=== PATIENT | male | born 1945 | race Caucasian/White ===

== ENCOUNTER 2018-01-11 20:36 | Inpatient (IN) | payer MEDICARE, BC ==
--- NOTE | 2018-01-11 21:20 | EDM.PDOC ---
ED HPI GENERAL MEDICAL PROBLEM - General Chief Complaint: General Stated Complaint: FALL AND NAUSEA Time Seen by Provider: 01/11/18 20:50 Source of Information: Reports: Patient, Family History Limitations: Reports: No Limitations - History of Present Illness INITIAL COMMENTS - FREE TEXT/NARRATIVE: This is a 72yo M here for dizziness nausea and feeling very very nauseated. He was outside for 2.5hrs in the AM and then 3.5 hours later in the day working up a good sweat. He started feeling weak and his helped him lie down in the basement. EMS was called when he couldn't get up and continued vomiting. He denies excess exposure to herbicides he was spraying earlier in the day but states he was sweating a lot throughout the day. He continues to be severely nauseated when lying on his back. Onset: Sudden Duration: Minutes: Location: Reports: Generalized Severity: Severe Improves with: Reports: None Worsens with: Reports: None Associated Symptoms: Reports: Nausea/Vomiting, Weakness - Related Data Allergies Allergy/AdvReac Type Severity Reaction Status Date / Time seasonal alergies Allergy Difficulty Uncoded 06/05/16 17:37 Breathing Home Meds: Home Meds atorvaSTATin [Lipitor] 10 mg PO BEDTIME 06/05/16 [History] Past Medical History HEENT History: Reports: Hard of Hearing, Impaired Vision Gastrointestinal History: Reports: Colon Polyp Endocrine/Metabolic History: Reports: Diabetes, Type II Dermatologic History: Reports: Eczema - Infectious Disease History Infectious Disease History: Reports: Chicken Pox, Influenza, Mumps, Pertussis ( Whooping Cough), TB Other Infectious Disease History: 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 ED EXAM, GENERAL - Physical Exam Exam: See Below Exam Limited By: No Limitations General Appearance: Alert, WD/WN, Severe Distress Eye Exam: Bilateral Eye: EOMI, PERRL Ears: Normal External Exam Nose: Normal Inspection, Normal Mucosa, No Blood Throat/Mouth: Normal Inspection, Normal Lips, Normal Teeth, Normal Gums, Normal Oropharynx, Normal Voice, No Airway Compromise Head: Atraumatic, Normocephalic Neck: Normal Inspection, Supple, Non-Tender, Full Range of Motion Respiratory/Chest: No Respiratory Distress, Lungs Clear, Normal Breath Sounds, No Accessory Muscle Use, Chest Non-Tender Cardiovascular: Normal Peripheral Pulses, Regular Rate, Rhythm, No Edema, No JVD , No Murmur Peripheral Pulses: 2+: Dorsalis Pedis (L), Dorsalis Pedis (R) GI/Abdominal: Normal Bowel Sounds, Soft, Non-Tender, No Organomegaly Back Exam: Normal Inspection Extremities: Normal Inspection, Normal Range of Motion Neurological: Alert, Oriented Psychiatric: Normal Affect, Normal Mood Skin Exam: Dry, Intact, Diaphoretic EKG INTERPRETATION EKG Date: 01/11/18 EKG Interpretation Comments: Patient unable to lie on back due to severe wretching and vomiting when turned to his back. Course - Orders/Labs/Meds Orders: Active Orders 24 hr Category Date Time Status Patient Status [ADT] Routine ADT 01/11/18 22:13 Ordered Ambulate [RC] PER UNIT ROUTINE Care 01/11/18 22:13 Ordered EKG Documentation Completion [RC] ASDIRECTED Care 01/11/18 21:07 Active Oxygen Therapy [RC] PRN Care 01/11/18 22:13 Ordered Up With Assistance [RC] ASDIRECTED Care 01/11/18 22:13 Ordered Vital Signs [RC] Q4H Care 01/11/18 22:13 Ordered Regular Diet [DIET] Diet 01/11/18 Breakfast Ordered Ondansetron [Zofran] Med 01/11/18 22:30 Ordered 4 mg IVPUSH Q4H Promethazine [Phenergan] 12.5 mg Med 01/11/18 21:40 Active Sodium Chloride 0.9% [Normal Saline] 50 ml IV Q4H Sodium Chloride 0.9% [Normal Saline] 1,000 ml Med 01/11/18 21:15 Active IV ASDIRECTED atorvaSTATin [Lipitor] Med 01/12/18 20:00 Ordered 10 mg PO BEDTIME Resuscitation Status Routine Resus Stat 01/11/18 22:13 Ordered Medication Orders Sodium Chloride (Normal Saline) 1,000 mls @ 999 mls/hr IV ASDIRECTED ANASTASIYA Stop: 01/13/18 22:16 Promethazine HCl 12.5 mg/ (Sodium Chloride) 50.5 mls @ 200 mls/hr IV Q4H PRN PRN Reason: Nausea/Vomiting Ondansetron HCl (Zofran) 4 mg IVPUSH Q4H ANASTASIYA Labs: Laboratory Tests 01/11/18 01/11/18 01/11/18 Range/Units 21:13 21:13 21:13 WBC 10.9 D (4.0-11.0) K/uL RBC 4.85 (4.50-6.50) M/uL Hgb 14.8 (13.0-18.0) g/dL Hct 42.2 (40.0-54.0) % MCV 87 (76-96) fL MCH 30.5 (27.0-32.0) pg MCHC 35.1 H (31.0-35.0) g/dL RDW 12.4 (11.0-16.0) % Plt Count 145 L (150-400) K/uL MPV 9.7 (6.0-10.0) fL Neut % (Auto) 76.6 H (45.0-70.0) % Lymph % (Auto) 15.1 L (20.0-40.0) % [place] % (Auto) 7.1 (3.0-10.0) % Eos % (Auto) 1.0 (1.0-5.0) % Baso % (Auto) 0.2 (0.0-0.5) % Neut # (Auto) 8.38 H (2.00-7.50) K/uL Lymph # (Auto) 1.65 (1.50-4.00) K/uL [place] # (Auto) 0.78 (0.20-0.80) K/uL Eos # (Auto) 0.11 (0.04-0.40) K/uL Baso # (Auto) 0.02 (0.02-0.10) K/uL Sodium 140 (136-145) mmol/L Potassium 3.7 (3.5-5.1) mmol/L Chloride 103 (98-107) mmol/L Carbon Dioxide 24.1 (21.0-32.0) mmol/L Anion Gap 16.6 H (5.0-15.0) mmol/L BUN 21 (8-26) mg/dL Creatinine 1.11 (0.70-1.30) mg/dL Est Cr Clr Drug Dosing TNP Estimated GFR (MDRD) > 60 (>60) MLS/MIN BUN/Creatinine Ratio 18.9 (6-25) Glucose 210 H D (74-100) mg/dL Calcium 8.4 L (8.5-10.1) mg/dL Total Bilirubin 0.8 (0.0-1.0) mg/dL AST 27 (15-37) U/L ALT 34 (12-78) U/L Alkaline Phosphatase 112 (46-116) U/L Troponin I < 0.017 (0.000-0.060) ng/mL Total Protein 7.0 (6.4-8.2) g/dL Albumin 3.8 (3.4-5.0) g/dL Globulin 3.2 (2.2-4.2) g/dL Albumin/Globulin Ratio 1.2 (0.8-2.0) TSH, Ultra Sensitive 1.021 (0.358-3.740) uIU/mL Urine Color Urine Appearance (CLEAR) Urine pH (5.0-8.0) Ur Specific [place] (1.003-1.030) Urine Protein (NEGATIVE) mg/dL Urine Glucose (UA) (NEGATIVE) mg/dL Urine Ketones (NEGATIVE) mg/dL Urine Occult Blood (NEGATIVE) Urine Nitrite (NEGATIVE) Urine Bilirubin (NEGATIVE) Urine Urobilinogen (0.2-1.0) E.U./dL Ur Leukocyte Esterase (NEGATIVE) Urine RBC /HPF Urine WBC /HPF Ketones Negative (NEGATIVE) 01/11/18 Range/Units 21:43 WBC (4.0-11.0) K/uL RBC (4.50-6.50) M/uL Hgb (13.0-18.0) g/dL Hct (40.0-54.0) % MCV (76-96) fL MCH (27.0-32.0) pg MCHC (31.0-35.0) g/dL RDW (11.0-16.0) % Plt Count (150-400) K/uL MPV (6.0-10.0) fL Neut % (Auto) (45.0-70.0) % Lymph % (Auto) (20.0-40.0) % [place] % (Auto) (3.0-10.0) % Eos % (Auto) (1.0-5.0) % Baso % (Auto) (0.0-0.5) % Neut # (Auto) (2.00-7.50) K/uL Lymph # (Auto) (1.50-4.00) K/uL [place] # (Auto) (0.20-0.80) K/uL Eos # (Auto) (0.04-0.40) K/uL Baso # (Auto) (0.02-0.10) K/uL Sodium (136-145) mmol/L Potassium (3.5-5.1) mmol/L Chloride (98-107) mmol/L Carbon Dioxide (21.0-32.0) mmol/L Anion Gap (5.0-15.0) mmol/L BUN (8-26) mg/dL Creatinine (0.70-1.30) mg/dL Est Cr Clr Drug Dosing Estimated GFR (MDRD) (>60) MLS/MIN BUN/Creatinine Ratio (6-25) Glucose (74-100) mg/dL Calcium (8.5-10.1) mg/dL Total Bilirubin (0.0-1.0) mg/dL AST (15-37) U/L ALT (12-78) U/L Alkaline Phosphatase (46-116) U/L Troponin I (0.000-0.060) ng/mL Total Protein (6.4-8.2) g/dL Albumin (3.4-5.0) g/dL Globulin (2.2-4.2) g/dL Albumin/Globulin Ratio (0.8-2.0) TSH, Ultra Sensitive (0.358-3.740) uIU/mL Urine Color Yellow Urine Appearance Clear (CLEAR) Urine pH 7.0 (5.0-8.0) Ur Specific [place] 1.020 (1.003-1.030) Urine Protein Negative (NEGATIVE) mg/dL Urine Glucose (UA) 100 H (NEGATIVE) mg/dL Urine Ketones 15 H (NEGATIVE) mg/dL Urine Occult Blood Negative (NEGATIVE) Urine Nitrite Negative (NEGATIVE) Urine Bilirubin Negative (NEGATIVE) Urine Urobilinogen 0.2 (0.2-1.0) E.U./dL Ur Leukocyte Esterase Negative (NEGATIVE) Urine RBC Not seen /HPF Urine WBC Not seen /HPF Ketones (NEGATIVE) Meds: Medications Generic Name Dose Route Start Last Admin Trade Name Freq PRN Reason Stop Dose Admin Sodium Chloride 1,000 mls @ 999 mls/hr 01/11/18 21:15 Normal Saline IV 01/13/18 22:16 ASDIRECTED ANASTASIYA Promethazine HCl 12.5 mg/ 50.5 mls @ 200 mls/hr 01/11/18 21:40 Sodium Chloride IV Q4H PRN Nausea/Vomiting Ondansetron HCl 4 mg 01/11/18 22:30 Zofran IVPUSH Q4H ANASTASIYA Discontinued Medications Generic Name Dose Route Start Last Admin Trade Name Freq PRN Reason Stop Dose Admin Promethazine HCl 6.25 mg/ 50.25 mls @ 200 mls/hr 01/11/18 21:26 Sodium Chloride IV Q4H PRN Nausea/Vomiting Ondansetron HCl 4 mg 01/11/18 21:26 Zofran IVPUSH 01/11/18 21:27 ONETIME ONE Departure - Departure Time of Disposition: 22:18 Disposition: Admitted As Inpatient 66 Condition: Good Clinical Impression: Dehydration after exertion, Exertional heat stroke Intractable nausea and vomiting Qualifiers: Vomiting type: unspecified Qualified Code(s): R11.2 - Nausea with vomiting, unspecified - Discharge Information Forms: ED Department Discharge - Problem List & Annotations (1) Dehydration after exertion SNOMED Code(s): 184472612 Code(s): E86.0 - DEHYDRATION Status: Acute Priority: High (2) Exertional heat stroke SNOMED Code(s): 335735489 Code(s): T67.0XXA - HEATSTROKE AND SUNSTROKE, INITIAL ENCOUNTER Status: Acute Priority: High (3) Intractable nausea and vomiting SNOMED Code(s): 278200432 Code(s): R11.2 - NAUSEA WITH VOMITING, UNSPECIFIED Status: Acute Priority : High Qualifiers: Vomiting type: unspecified Qualified Code(s): R11.2 - Nausea with vomiting , unspecified - Problem List Review Problem List Initiated/Reviewed/Updated: Yes - My Orders Last 24 Hours: My Active Orders 01/11/18 21:07 EKG Documentation Completion [RC] ASDIRECTED 01/11/18 21:15 Sodium Chloride 0.9% [Normal Saline] 1,000 ml IV ASDIRECTED 01/11/18 21:40 Promethazine [Phenergan] 12.5 mg Sodium Chloride 0.9% [Normal Saline] 50 ml IV Q4H 01/11/18 22:13 Patient Status [ADT] Routine Ambulate [RC] PER UNIT ROUTINE Oxygen Therapy [RC] PRN Up With Assistance [RC] ASDIRECTED Vital Signs [RC] Q4H Resuscitation Status Routine 01/11/18 22:30 Ondansetron [Zofran] 4 mg IVPUSH Q4H 01/11/18 Breakfast Regular Diet [DIET] 01/12/18 20:00 atorvaSTATin [Lipitor] 10 mg PO BEDTIME - Assessment/Plan Last 24 Hours: My Active Orders 01/11/18 21:07 EKG Documentation Completion [RC] ASDIRECTED 01/11/18 21:15 Sodium Chloride 0.9% [Normal Saline] 1,000 ml IV ASDIRECTED 01/11/18 21:40 Promethazine [Phenergan] 12.5 mg Sodium Chloride 0.9% [Normal Saline] 50 ml IV Q4H 01/11/18 22:13 Patient Status [ADT] Routine Ambulate [RC] PER UNIT ROUTINE Oxygen Therapy [RC] PRN Up With Assistance [RC] ASDIRECTED Vital Signs [RC] Q4H Resuscitation Status Routine 01/11/18 22:30 Ondansetron [Zofran] 4 mg IVPUSH Q4H 01/11/18 Breakfast Regular Diet [DIET] 01/12/18 20:00 atorvaSTATin [Lipitor] 10 mg PO BEDTIME Plan: Poison control contacted and discussed 2-4-D herbicide and they state that the limited exposure would not have caused the symptoms exhibited. Patient admitted for heat stroke -exertional and dehydration. Continue IVF hydration for 3L and maintenance afterwards. Continue zofran and phenergan for intractable nausea and vomiting.
[2018-01-11] MEDS ORDERED: Ondansetron 4 MG/2 ML SDV IVPUSH ONE (21:26)
[2018-01-11] MEDS ORDERED: Promethazine 6.25 MG in Sodium Chloride 0.9% 50 ML IV PRN (21:26)
[2018-01-11] MEDS ORDERED: Promethazine 12.5 MG in Sodium Chloride 0.9% 50 ML IV PRN (21:40)
[2018-01-11] MEDS ORDERED: Ondansetron 4 MG/2 ML SDV ONE ×2 (22:30)
[2018-01-11] MEDS: Sodium Chloride 0.9% 1,000 ML IV SCH (23:20)
[2018-01-11] MEDS: Ondansetron 4 MG/2 ML SDV IVPUSH SCH (23:23)
[2018-01-12] MEDS: Sodium Chloride 0.9% 1,000 ML IV SCH ×2 (00:56→08:37)
[2018-01-12] MEDS: Ondansetron 4 MG/2 ML SDV IVPUSH SCH ×3 (02:15→05:33)
[2018-01-12] MEDS ORDERED: Sodium Chloride 0.9% 1,000 ML IV SCH (02:30)
[2018-01-12 09:25] VITALS: BP 125/52
--- NOTE | 2018-01-12 12:03 | PCM.DCSUM1 ---
Discharge Summary - Discharge Data Discharge Date: 01/12/18 Discharge Disposition: Home, Self-Care 01 Condition: Good - Discharge Diagnosis/Problem(s) (1) Dehydration after exertion SNOMED Code(s): 661472052 ICD Code: E86.0 - DEHYDRATION Status: Resolved Priority: High (2) Exertional heat stroke SNOMED Code(s): 493296028 ICD Code: T67.0XXA - HEATSTROKE AND SUNSTROKE, INITIAL ENCOUNTER Status: Resolved Priority: High (3) Intractable nausea and vomiting SNOMED Code(s): 629513933 ICD Code: R11.2 - NAUSEA WITH VOMITING, UNSPECIFIED Status: Resolved Priority: High Qualifiers: Vomiting type: unspecified Qualified Code(s): R11.2 - Nausea with vomiting , unspecified - Patient Instructions Activity: Rest and Relax Today Driving: May Drive Today Showering/Bathing: November Shower - Discharge Plan Home Medications: Home Meds atorvaSTATin [Lipitor] 10 mg PO BEDTIME 06/05/16 [History] Patient Handouts: Rehydration, Adult, Heat Illness-SportsMed Forms: ED Department Discharge - Discharge Summary/Plan Comment Discharge Summary/Plan Comment: Patient counseled on continued vigilant care for hydration and rest and sun protection. Discussed heat stroke vs heat exhaustion and f/u as directed in clinic. - Patient Data Vitals - Most Recent: Last Vital Signs Temp 36.9 C 01/12/18 08:00 Pulse 48 L 01/12/18 08:00 Resp 16 01/12/18 08:00 BP 125/52 L 01/12/18 08:00 Pulse Ox 99 01/12/18 08:00 I&O - Last 24 hours: Intake & Output 01/11/18 01/12/18 01/12/18 22:59 06:59 14:59 Intake Total 3560 Output Total 1250 Balance 2310 Lab Results - Last 24 hrs: Laboratory Results - last 24 hr 01/11/18 01/11/18 01/11/18 Range/Units 21:13 21:13 21:13 WBC 10.9 D (4.0-11.0) K/uL RBC 4.85 (4.50-6.50) M/uL Hgb 14.8 (13.0-18.0) g/dL Hct 42.2 (40.0-54.0) % MCV 87 (76-96) fL MCH 30.5 (27.0-32.0) pg MCHC 35.1 H (31.0-35.0) g/dL RDW 12.4 (11.0-16.0) % Plt Count 145 L (150-400) K/uL MPV 9.7 (6.0-10.0) fL Neut % (Auto) 76.6 H (45.0-70.0) % Lymph % (Auto) 15.1 L (20.0-40.0) % [place] % (Auto) 7.1 (3.0-10.0) % Eos % (Auto) 1.0 (1.0-5.0) % Baso % (Auto) 0.2 (0.0-0.5) % Neut # (Auto) 8.38 H (2.00-7.50) K/uL Lymph # (Auto) 1.65 (1.50-4.00) K/uL [place] # (Auto) 0.78 (0.20-0.80) K/uL Eos # (Auto) 0.11 (0.04-0.40) K/uL Baso # (Auto) 0.02 (0.02-0.10) K/uL Sodium 140 (136-145) mmol/L Potassium 3.7 (3.5-5.1) mmol/L Chloride 103 (98-107) mmol/L Carbon Dioxide 24.1 (21.0-32.0) mmol/L Anion Gap 16.6 H (5.0-15.0) mmol/L BUN 21 (8-26) mg/dL Creatinine 1.11 (0.70-1.30) mg/dL Est Cr Clr Drug Dosing TNP Estimated GFR (MDRD) > 60 (>60) MLS/MIN BUN/Creatinine Ratio 18.9 (6-25) Glucose 210 H D (74-100) mg/dL Calcium 8.4 L (8.5-10.1) mg/dL Total Bilirubin 0.8 (0.0-1.0) mg/dL AST 27 (15-37) U/L ALT 34 (12-78) U/L Alkaline Phosphatase 112 (46-116) U/L Troponin I < 0.017 (0.000-0.060) ng/mL Total Protein 7.0 (6.4-8.2) g/dL Albumin 3.8 (3.4-5.0) g/dL Globulin 3.2 (2.2-4.2) g/dL Albumin/Globulin Ratio 1.2 (0.8-2.0) TSH, Ultra Sensitive 1.021 (0.358-3.740) uIU/mL Urine Color Urine Appearance (CLEAR) Urine pH (5.0-8.0) Ur Specific [place] (1.003-1.030) Urine Protein (NEGATIVE) mg/dL Urine Glucose (UA) (NEGATIVE) mg/dL Urine Ketones (NEGATIVE) mg/dL Urine Occult Blood (NEGATIVE) Urine Nitrite (NEGATIVE) Urine Bilirubin (NEGATIVE) Urine Urobilinogen (0.2-1.0) E.U./dL Ur Leukocyte Esterase (NEGATIVE) Urine RBC /HPF Urine WBC /HPF Ketones Negative (NEGATIVE) 01/11/18 Range/Units 21:43 WBC (4.0-11.0) K/uL RBC (4.50-6.50) M/uL Hgb (13.0-18.0) g/dL Hct (40.0-54.0) % MCV (76-96) fL MCH (27.0-32.0) pg MCHC (31.0-35.0) g/dL RDW (11.0-16.0) % Plt Count (150-400) K/uL MPV (6.0-10.0) fL Neut % (Auto) (45.0-70.0) % Lymph % (Auto) (20.0-40.0) % [place] % (Auto) (3.0-10.0) % Eos % (Auto) (1.0-5.0) % Baso % (Auto) (0.0-0.5) % Neut # (Auto) (2.00-7.50) K/uL Lymph # (Auto) (1.50-4.00) K/uL [place] # (Auto) (0.20-0.80) K/uL Eos # (Auto) (0.04-0.40) K/uL Baso # (Auto) (0.02-0.10) K/uL Sodium (136-145) mmol/L Potassium (3.5-5.1) mmol/L Chloride (98-107) mmol/L Carbon Dioxide (21.0-32.0) mmol/L Anion Gap (5.0-15.0) mmol/L BUN (8-26) mg/dL Creatinine (0.70-1.30) mg/dL Est Cr Clr Drug Dosing Estimated GFR (MDRD) (>60) MLS/MIN BUN/Creatinine Ratio (6-25) Glucose (74-100) mg/dL Calcium (8.5-10.1) mg/dL Total Bilirubin (0.0-1.0) mg/dL AST (15-37) U/L ALT (12-78) U/L Alkaline Phosphatase (46-116) U/L Troponin I (0.000-0.060) ng/mL Total Protein (6.4-8.2) g/dL Albumin (3.4-5.0) g/dL Globulin (2.2-4.2) g/dL Albumin/Globulin Ratio (0.8-2.0) TSH, Ultra Sensitive (0.358-3.740) uIU/mL Urine Color Yellow Urine Appearance Clear (CLEAR) Urine pH 7.0 (5.0-8.0) Ur Specific [place] 1.020 (1.003-1.030) Urine Protein Negative (NEGATIVE) mg/dL Urine Glucose (UA) 100 H (NEGATIVE) mg/dL Urine Ketones 15 H (NEGATIVE) mg/dL Urine Occult Blood Negative (NEGATIVE) Urine Nitrite Negative (NEGATIVE) Urine Bilirubin Negative (NEGATIVE) Urine Urobilinogen 0.2 (0.2-1.0) E.U./dL Ur Leukocyte Esterase Negative (NEGATIVE) Urine RBC Not seen /HPF Urine WBC Not seen /HPF Ketones (NEGATIVE) Med Orders - Current: Current Medications Discontinued Medications Atorvastatin Calcium (Lipitor) 10 mg PO BEDTIME ANASTASIYA Sodium Chloride (Normal Saline) 1,000 mls @ 999 mls/hr IV ASDIRECTED ANASTASIYA Stop: 01/13/18 22:16 Last Infusion: 01/12/18 08:37 Dose: Infused Promethazine HCl 6.25 mg/ (Sodium Chloride) 50.25 mls @ 200 mls/hr IV Q4H PRN PRN Reason: Nausea/Vomiting Promethazine HCl 12.5 mg/ (Sodium Chloride) 50.5 mls @ 200 mls/hr IV Q4H PRN PRN Reason: Nausea/Vomiting Last Admin: 01/11/18 21:45 Dose: 200 mls/hr Sodium Chloride (Normal Saline) 1,000 mls @ 100 mls/hr IV ASDIRECTED ANASTASIYA Ondansetron HCl (Zofran) 4 mg IVPUSH ONETIME ONE Stop: 01/11/18 21:27 Last Admin: 01/11/18 23:22 Dose: Not Given Ondansetron HCl (Zofran) 4 mg IVPUSH Q4H ANASTASIYA Last Admin: 01/12/18 05:33 Dose: 4 mg Ondansetron HCl (Zofran) 4 mg .ROUTE .STK-MED ONE Stop: 01/11/18 22:31 Ondansetron HCl (Zofran) 4 mg .ROUTE .STK-MED ONE Stop: 01/11/18 22:31 Sodium Chloride (Normal Saline) 1,000 ml .ROUTE .STK-MED ONE Stop: 01/11/18 22:31
[2018-01-12] MEDS ORDERED: atorvaSTATin 10 MG Tab PO SCH (20:00)
== END 2018-01-12 10:08 | disposition home or self-care (01) | DRG 923 ==
LOC: LB.ED 20:36 → OBSVTOIN 22:13 → LB.MS 22:13 → UNDOADMOB 22:40
PROVIDERS: ADMIT Family Medicine; ATTEND Family Medicine
DX: T67.0XXA Heatstroke and sunstroke, initial encounter (principal); E86.0 Dehydration; Z79.899 Other long term (current) drug therapy; R42 Dizziness and giddiness; R53.1 Weakness; R11.2 Nausea with vomiting, unspecified; X30.XXXA Exposure to excessive natural heat, initial encounter
CPT/HCPCS: 36415; 80053; 81001; 82009; 84443; 84484; 85025; 93005; J2550; J7050; 96374; 99284-25; A0425; A0429; J2405; J7030

== ENCOUNTER 2020-01-31 09:29 | Emergency (ER) | payer MEDICARE, BC ==
[2020-01-31 10:41] VITALS: BP 151/51; PULSE 49
--- NOTE | 2020-01-31 11:22 | EDM.PDOC ---
ED HPI GENERAL MEDICAL PROBLEM - General Chief Complaint: General Stated Complaint: LUMP IN LEG, PAIN Time Seen by Provider: 01/31/20 11:00 Source of Information: Reports: Patient History Limitations: Reports: No Limitations - History of Present Illness INITIAL COMMENTS - FREE TEXT/NARRATIVE: pt presents with a soft tissue lump in the medial portion of his left upper tibia. he states he first noticed it yesterday morning and had some difficulty sleeping due to the initial discomfort. as the day went on the discomfort dissapated and he went to bed last night without issue. he called "ask a nurse [facility]" who recommended evaluation jolynn. pain increases with palpation and manipulation of the "lump" and improves with daily activity. pt denies shortness of breath, chest pain, lightheadedness, trauma to area. this pt was evaluated in the setting of covid 19 pandemic. medical history significant for cancer. 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 - Related Data Allergies Allergy/AdvReac Type Severity Reaction Status Date / Time Environmental Allergy Difficulty Uncoded 01/31/20 10:34 Breathing Home Meds: Home Meds atorvaSTATin [Lipitor] 10 mg PO BEDTIME 06/05/16 [History] Fexofenadine [Katarina] 180 mg PO DAILY PRN 12/14/18 [History] Albuterol [Ventolin HFA] 1 puff .XX Q4HR PRN 01/31/20 [History] Aspirin [Halfprin] 81 mg PO DAILY 01/31/20 [History] Diltiazem [Cardizem CD] 120 mg PO DAILY 01/31/20 [History] Rivaroxaban [Xarelto] 20 mg PO DAILY 01/31/20 [History] metFORMIN [Glucophage] 500 mg PO BIDMEALS 01/31/20 [History] Past Medical History HEENT History: Reports: Hard of Hearing, Impaired Vision Gastrointestinal History: Reports: Colon Polyp Endocrine/Metabolic History: Reports: Diabetes, Type II Dermatologic History: Reports: Eczema - Infectious Disease History Infectious Disease History: Reports: Chicken Pox, Mumps Other Infectious Disease History: 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 ED EXAM, GENERAL - Physical Exam Exam: See Below Exam Limited By: No Limitations General Appearance: Alert, WD/WN Respiratory/Chest: No Respiratory Distress, Lungs Clear, Normal Breath Sounds Cardiovascular: Normal Peripheral Pulses, No Murmur Extremities: Normal Inspection, Normal Range of Motion, No Pedal Edema, Other (cystic struction on distal end of fascia kristina of left medial tibia. no skin discoloration noted.) Course - Vital Signs Last Recorded V/S: Last Vital Signs Temp 97.7 F 01/31/20 10:27 Pulse 49 L 01/31/20 10:27 Resp 18 01/31/20 10:27 BP 151/51 H 01/31/20 10:27 Pulse Ox 98 01/31/20 10:27 Departure - Departure Time of Disposition: 11:19 Disposition: Home, Self-Care 01 Condition: Good Clinical Impression: Soft tissue complaint - Discharge Information *PRESCRIPTION DRUG MONITORING PROGRAM REVIEWED*: No *COPY OF PRESCRIPTION DRUG MONITORING REPORT IN PATIENT CLIFF: No Referrals: PCP,None [Primary Care Provider] - Additional Instructions: monitor this lump for growth, bruising, changes in pain. if symptoms do change you should be able to follow up in clinic if you begin to have breathing changes or chest pain or any other concerning symptoms, return to ER jolynn. tylenol 1000mg four times a day and ibuprofen 400mg four times a day OR aleve 220mg twice a day for discomfort. continue activities as normal. Sepsis Event Note (ED) - Evaluation Sepsis Screening Result: No Definite Risk - Focused Exam Vital Signs: Vital Signs Temp Pulse Resp BP Pulse Ox 01/31/20 10:27 97.7 F 49 L 18 151/51 H 98 - Problem List & Annotations (1) Soft tissue complaint SNOMED Code(s): 296851928 Code(s): M79.9 - SOFT TISSUE DISORDER, UNSPECIFIED Status: Acute Current Visit: Yes - Problem List Review Problem List Initiated/Reviewed/Updated: Yes - Assessment/Plan Assessment:: assessment:soft tissue complaint plan:bedside US shows cystic structure vs hematoma along the fascia kristina of medial aspect left upper tibia. currently only discomfort with palpation. surrounding vessels show no signs of thrombosis as they compress appropriately. pt agreeable to plan of care to monitor and f/u in clinic. he was discharged with instructions and return precautions. differentials include dvt, hematoma, ligamentous cyst.
== END 2020-01-31 11:35 | disposition home or self-care (01) ==
LOC: LB.ED 09:29
DX: M79.9 Soft tissue disorder, unspecified (principal); E11.9 Type 2 diabetes mellitus without complications; Z79.84 Long term (current) use of oral hypoglycemic drugs; Z79.82 Long term (current) use of aspirin; Z79.01 Long term (current) use of anticoagulants; Z91.09 Other allergy status, other than to drugs and biological substances; Z79.899 Other long term (current) drug therapy
CPT/HCPCS: 99282